=== PATIENT | female | born 1980 | race Caucasian/White ===

== ENCOUNTER 2017-11-25 13:21 | Emergency (ER) | payer BC ==
[~2017-11-25] VITALS: Ht 160 cm; Wt 67.1 kg
[2017-11-25 14:32] LABS: BASOPHIL (%) 0.1 % (0-1); EOSINOPHIL (%) 0.1 % (0-5); HEMATOCRIT 33.5 % (36.0-46.0); HEMOGLOBIN 11.8 G/DL (11.9-15.5); IMMATURE GRANULOCYTE (%) 0.4 % (0.0-0.7); LYMPHOCYTE (%) 15.3 % (15-42); LYMPHOCYTE COUNT 1.4 K/uL (1.0-2.8); MCH 32.9 PG (29.0-34.0); MCHC 35.2 G/DL (30.0-36.0); MCV 93.3 FL (83-99); MONOCYTE (%) 5.7 % (3-12); MONOCYTE COUNT 0.5 K/uL (0-0.8); NEUTROPHIL (%) 78.4 % (45-76); NEUTROPHIL COUNT 7.3 K/uL (1.8-6.4); PLATELET COUNT 253 K/uL (156-360); RBC DIS.WIDTH-CV 12.1 % (11.8-14.6); RBC DIS.WIDTH-SD 41.2 % (39-53); RED BLOOD COUNT 3.59 M/uL (3.80-5.20); WHITE BLOOD COUNT 9.3 K/uL (4.1-10.2)
[2017-11-25 14:37] LABS: APPEARANCE SL.HAZY ((CLEAR)); BILIRUBIN NEGATIVE; BLOOD MODERATE; COLOR STRAW ((YELLOW)); GLUCOSE (STRIP) NEGATIVE; KETONES NEGATIVE; LEUKOCYTES NEGATIVE; NITRITE NEGATIVE; PROTEIN (STRIP) NEGATIVE; SPECIFIC GRAVITY 1.005 (1.000-1.030); UROBILINOGEN 0.2 MG/DL (0.2-1.0)
[2017-11-25 14:40] LABS: ALBUMIN 3.9 g/dL (3.2-4.8); CHLORIDE 107 mEq/L (99-109); POTASSIUM 3.9 mEq/L (3.7-5.4); SODIUM 140 mEq/L (136-147)
[2017-11-25 14:41] LABS: BACTERIA RARE /HPF; CALCIUM OXALATE CRYSTALS 1+ /HPF; EPITHELIAL CELLS 1+ /HPF; MUCUS TRACE /LPF; RED BLOOD CELLS 0-5 /HPF (0-5); WHITE BLOOD CELLS 0-5 /HPF (0-5)
[2017-11-25 14:43] LABS: GLUCOSE 105 mg/dL (70-99); TOTAL PROTEIN 6.3 g/dL (6.4-8.3)
[2017-11-25 14:45] LABS: TOTAL BILIRUBIN 0.5 mg/dL (0.0-1.0)
[2017-11-25 14:46] LABS: ALKALINE PHOSPHATASE 62 IU/L (3-129); CREATININE 0.8 mg/dL (0.6-1.3); GFR ESTIMATE (CALCULATED) > 59 mL/min/
[2017-11-25 14:47] LABS: UREA NITROGEN (BUN) 8 mg/dL (9-23)
[2017-11-25 14:48] LABS: AST (GOT) 16 IU/L (2-34)
[2017-11-25 14:49] LABS: ALT (GPT) 10 IU/L (3-49)
[2017-11-25 14:55] LABS: QUANTITATIVE HCG < 4.0 MIU/ML
[2017-11-25] MEDS ORDERED: BENTYL20 MG PO (15:56)
[2017-11-25] MEDS ORDERED: ZOFRAN ODT4 MG PO (15:56)
[2017-11-25 16:20] VITALS: BP 159/108
[2017-11-25 16:41] LABS: CANDIDA DNA PROBE NEGATIVE; GARDNERELLA DNA PROBE NEGATIVE; TRICHOMONAS DNA PROBE NEGATIVE
[2017-11-26] MEDS ORDERED: FLAGYL500 MG PO (14:37)
[2017-11-26] MEDS ORDERED: VIBRAMYCIN100 MG PO (14:37)
[2017-11-26] MEDS ORDERED: MOTRIN800 MG PO (14:37)
[2017-11-27 08:52] LABS: SOURCE SWAB
== END 2017-11-25 16:22 | disposition home or self-care (01) ==
LOC: EME 13:21
PROVIDERS: Physician Assistant
DX: R19.7 Diarrhea, unspecified (principal); R10.84 Generalized abdominal pain; Z85.828 Personal history of other malignant neoplasm of skin; Z86.018 Personal history of other benign neoplasm
CPT/HCPCS: 74177; 80053; 81003; 83630; 84702; 85025; 87480; 87491; 87493; 87506; 87510; 87591; 87660; 99281; 99284; J7030

== ENCOUNTER 2017-11-26 10:18 | Emergency (ER) | payer BC ==
[~2017-11-26] VITALS: Ht 160 cm; Wt 63.0 kg
[~2017-11-26 10:18] MED LIST: BENTYL20 MG PO; ZOFRAN ODT4 MG PO
[2017-11-26 10:48] LABS: HEMATOCRIT 33.7 % (36.0-46.0); HEMOGLOBIN 11.8 G/DL (11.9-15.5); MCV 94.1 FL (83-99); PLATELET COUNT 258 K/uL (156-360); RBC DIS.WIDTH-CV 12.3 % (11.8-14.6); RBC DIS.WIDTH-SD 42.5 % (39-53); RED BLOOD COUNT 3.58 M/uL (3.80-5.20); WHITE BLOOD COUNT 6.5 K/uL (4.1-10.2)
[2017-11-26 10:58] LABS: ALBUMIN 3.9 g/dL (3.2-4.8)
[2017-11-26 10:59] LABS: CHLORIDE 108 mEq/L (99-109); POTASSIUM 3.8 mEq/L (3.7-5.4); SODIUM 141 mEq/L (136-147)
[2017-11-26 11:01] LABS: GLUCOSE 112 mg/dL (70-99); TOTAL PROTEIN 6.3 g/dL (6.4-8.3)
[2017-11-26 11:03] LABS: TOTAL BILIRUBIN 0.5 mg/dL (0.0-1.0)
[2017-11-26 11:04] LABS: ALKALINE PHOSPHATASE 63 IU/L (3-129)
[2017-11-26 11:05] LABS: CREATININE 0.9 mg/dL (0.6-1.3); GFR ESTIMATE (CALCULATED) > 59 mL/min/
[2017-11-26 11:06] LABS: AST (GOT) 15 IU/L (2-34); UREA NITROGEN (BUN) 9 mg/dL (9-23)
[2017-11-26 11:07] LABS: ALT (GPT) 8 IU/L (3-49)
[2017-11-26 11:13] LABS: QUANTITATIVE HCG < 4.0 MIU/ML
[2017-11-26 12:18] LABS: C DIFF TOXIN NEGATIVE (NEGATIVE)
[2017-11-26 14:23] LABS: APPEARANCE CLEAR ((CLEAR)); BILIRUBIN NEGATIVE; BLOOD NEGATIVE; COLOR STRAW ((YELLOW)); GLUCOSE (STRIP) NEGATIVE; KETONES 5; LEUKOCYTES NEGATIVE; NITRITE NEGATIVE; PROTEIN (STRIP) NEGATIVE; SPECIFIC GRAVITY 1.004 (1.000-1.030); UCUL ADDED? NO; UROBILINOGEN 0.2 MG/DL (0.2-1.0)
[2017-11-26] MEDS ORDERED: FLAGYL500 MG PO (14:37)
[2017-11-26] MEDS ORDERED: VIBRAMYCIN100 MG PO (14:37)
[2017-11-26] MEDS ORDERED: MOTRIN800 MG PO (14:37)
[2017-11-26 15:15] VITALS: BP 153/87
== END 2017-11-26 15:16 | disposition home or self-care (01) ==
LOC: EME 10:18
PROVIDERS: Physician Assistant Medical
DX: N71.9 Inflammatory disease of uterus, unspecified (principal); R19.7 Diarrhea, unspecified; Q51.6 Embryonic cyst of cervix
CPT/HCPCS: 76856; 80053; 81003; 84702; 85027; 87493; 87506; 99281; 99285; J0696; J1885